=== PATIENT | female | born 1960 ===

== ENCOUNTER 2020-10-29 15:24 | Emergency (ER) | payer BC, SELFPAY ==
--- NOTE | ~2020-10-29 | XR_ITS ---
EXAMINATION: WRIST, BILATERAL CLINICAL INFORMATION: Fall, EtOH. COMPARISON: None TECHNIQUE: 3 views of the bilateral wrists FINDINGS: Left wrist: No fracture or dislocation. Alignment is normal. Soft tissues unremarkable. Right wrist: There is a small well corticated ossific density projecting over the ulnar styloid carpal alignment is normal. Soft tissues unremarkable. XR/XR hand wrist RT IMPRESSION: Small well-corticated ossific density projecting over the right styloid may be chronic however an avulsion fracture is not excluded. Correlate with physical exam
--- NOTE | ~2020-10-29 | CT_ITS ---
EXAMINATION: CT HEAD WITHOUT CONTRAST CT CERVICAL SPINE WITHOUT CONTRAST CLINICAL INFORMATION: Status post fall. EtOH. COMPARISON: None TECHNIQUE: Multidetector volumetric CT imaging of the head and cervical spine are acquired without intravenous contrast administration. Postprocessing is performed at a dedicated workstation. Multiplanar reformatted images are submitted. This CT scan was performed using dose optimization techniques as appropriate to a performed exam including the following: *Automated exposure control. *Adjustment of mA and/or kV according to patient size (this includes techniques or standardized protocols for targeted exams were dose is matched to indication/reason for exam; i.e. extremities or head). *Use of iterative reconstruction technique. DLP: 991 mGy-cm FINDINGS: CT HEAD: The ventricles and cortical sulci are age-appropriate. There is mild bifrontal volume loss. Vfyd-ji-ressz matter differentiation is well preserved. There is no evidence of abnormal parenchymal attenuation. There is no evidence of acute intracranial hemorrhage, midline shift or mass effect. No evidence of acute territorial infarction. No abnormal extra-axial fluid collection is noted. Scattered calcific atherosclerosis of the internal carotid arteries. Mild mucosal thickening in the bilateral inferior maxillary sinuses, left greater than right. Remainder of the visualized paranasal sinuses are clear. Mastoid air cells, and middle ear cavities are well aerated. The osseous calvarium is intact. There is no evidence of significant calvarial soft tissue swelling or hematoma. CT CERVICAL SPINE: There is mild reversal of cervical lordosis. The vertebral body heights are maintained. Minimal anterior subluxation of C2 over C3 is likely positional. The posterior elements are intact and in normal alignment. Atlantoaxial and atlanto-occipital alignments are maintained. Degenerative changes are noted at the atlantoaxial articulation. There is hvhelwdf-mg-nwnuqi narrowing of the C4-C5, C5-C6 and C6-C7 disc spaces with endplate sclerosis and erosive changes at C5-C6. Small marginal endplate osteophytes are noted at C4, C5 and C6. Small anterior endplate osteophyte is noted at the superior margin of C7. Micqdwbr-ya-pyzrcy bilateral neural foraminal stenosis is noted at C4-C5 and C5-C6 levels. No evidence of tight central canal stenosis. No evidence of prevertebral soft tissue swelling. The airway is patent. No focal thyroid nodule. The visualized lung apices are unremarkable except for minimal biapical pleural thickening/scarring. CT/CT head/brain wo con IMPRESSION: HEAD: No acute intracranial abnormality. CERVICAL SPINE: 1. No evidence of acute fracture or traumatic subluxation in the cervical spine. 2. Cervical spondylosis most significant from C4 to C6.
--- NOTE | ~2020-10-29 | XR_ITS ---
EXAMINATION: WRIST, BILATERAL CLINICAL INFORMATION: Fall, EtOH. COMPARISON: None TECHNIQUE: 3 views of the bilateral wrists FINDINGS: Left wrist: No fracture or dislocation. Alignment is normal. Soft tissues unremarkable. Right wrist: There is a small well corticated ossific density projecting over the ulnar styloid carpal alignment is normal. Soft tissues unremarkable. XR/XR hand wrist LT IMPRESSION: Small well-corticated ossific density projecting over the right styloid may be chronic however an avulsion fracture is not excluded. Correlate with physical exam
--- NOTE | ~2020-10-29 | CT_ITS ---
EXAMINATION: CT HEAD WITHOUT CONTRAST CT CERVICAL SPINE WITHOUT CONTRAST CLINICAL INFORMATION: Status post fall. EtOH. COMPARISON: None TECHNIQUE: Multidetector volumetric CT imaging of the head and cervical spine are acquired without intravenous contrast administration. Postprocessing is performed at a dedicated workstation. Multiplanar reformatted images are submitted. This CT scan was performed using dose optimization techniques as appropriate to a performed exam including the following: *Automated exposure control. *Adjustment of mA and/or kV according to patient size (this includes techniques or standardized protocols for targeted exams were dose is matched to indication/reason for exam; i.e. extremities or head). *Use of iterative reconstruction technique. DLP: 991 mGy-cm FINDINGS: CT HEAD: The ventricles and cortical sulci are age-appropriate. There is mild bifrontal volume loss. Numw-vz-mvebj matter differentiation is well preserved. There is no evidence of abnormal parenchymal attenuation. There is no evidence of acute intracranial hemorrhage, midline shift or mass effect. No evidence of acute territorial infarction. No abnormal extra-axial fluid collection is noted. Scattered calcific atherosclerosis of the internal carotid arteries. Mild mucosal thickening in the bilateral inferior maxillary sinuses, left greater than right. Remainder of the visualized paranasal sinuses are clear. Mastoid air cells, and middle ear cavities are well aerated. The osseous calvarium is intact. There is no evidence of significant calvarial soft tissue swelling or hematoma. CT CERVICAL SPINE: There is mild reversal of cervical lordosis. The vertebral body heights are maintained. Minimal anterior subluxation of C2 over C3 is likely positional. The posterior elements are intact and in normal alignment. Atlantoaxial and atlanto-occipital alignments are maintained. Degenerative changes are noted at the atlantoaxial articulation. There is cfjhdyzg-tn-fqfmeq narrowing of the C4-C5, C5-C6 and C6-C7 disc spaces with endplate sclerosis and erosive changes at C5-C6. Small marginal endplate osteophytes are noted at C4, C5 and C6. Small anterior endplate osteophyte is noted at the superior margin of C7. Fuwwmjxu-yd-vkjmvk bilateral neural foraminal stenosis is noted at C4-C5 and C5-C6 levels. No evidence of tight central canal stenosis. No evidence of prevertebral soft tissue swelling. The airway is patent. No focal thyroid nodule. The visualized lung apices are unremarkable except for minimal biapical pleural thickening/scarring. CT/CT cervical spine wo con IMPRESSION: HEAD: No acute intracranial abnormality. CERVICAL SPINE: 1. No evidence of acute fracture or traumatic subluxation in the cervical spine. 2. Cervical spondylosis most significant from C4 to C6.
[2020-10-29 16:06] VITALS: BP 118/82; BP 127/86; PULSE 111; PULSE 115; RESP 18; TEMP 37.1; O2SAT 95; BMI 23.5
--- NOTE | 2020-10-29 16:16 | PC.NURSE ---
Pt observer at bedside
[2020-10-29 17:40] LABS: COVID-19 Test Negative (Negative)
[2020-10-29] MEDS: 0.9 % Sodium Chloride 1,000 ML 999 ML IVCONT (18:00)
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
[2020-10-29] MEDS: Diphth,Pertus(ACell),Tet Adult 0.5 ML SYRINGE IM (18:15)
[2020-10-29 18:16] LABS: MANUAL DIFF FLAG NO
[2020-10-29 18:17] LABS: Basophils Absolute Auto 0.1 X10*3/uL (0.0-0.2); Basophils Percent Auto 1.2 % (0-2); Eosinophils Absolute Auto 0.3 X10*3/uL (0.0-0.4); Eosinophils Percent Auto 5.5 % (0-4); Hematocrit 42.2 % (37-47); Hemoglobin 14.1 g/dl (12.0-16.0); Imm Gran Abs Auto 0.02 X10*3/uL (0.00-0.03); Imm Gran Pct Auto 0.3 % (0.0-0.4); Lymphocytes Absolute Auto 2.4 X10*3/uL (1.2-4.9); Lymphocytes Percent Auto 40.5 % (20-40); Mean Corpuscular HGB Conc 33.4 g/dl (31.0-35.0); Mean Corpuscular Volume 95.9 fL (80-98); Mean Platelet Volume 9.2 fL (9.4-12.3); Monocytes Absolute Auto 0.3 X10*3/uL (0.1-1.2); Monocytes Percent Auto 5.4 % (2-11); Neutrophils Absolute Auto 2.8 X10*3/uL (2.0-8.3); Neutrophils Percent Auto 47.1 % (45-73); Platelet Count 307 X10*3/uL (160-400); Red Cell Distribution Width 12.7 % (11.0-16.0)
[2020-10-29 18:23] LABS: Prothrombin Time 11.5 SEC (10.8-13.0)
[2020-10-29 18:26] LABS: Partial Thromboplastin Time 32.1 SEC (24.1-38.0)
[2020-10-29] MEDS: Lidocaine HCl 1 % MPF 5 ML VIAL SUBCUT (18:37)
--- NOTE | 2020-10-29 18:37 | PC.NURSE ---
Blood obtained, urine collected. PA at bedside now for suturing of lac to chin. PT is cooperative with care but has outbursts of agitation at times. Pt is redirectable most times.
[2020-10-29 18:43] LABS: Ethanol 325 mg/dL
[2020-10-29 18:44] LABS: Glucose Urine UA NEG (NEG); Leukocyte Esterase Urine 2+ (NEG); Nitrite Urine NEG (NEG); Specific Gravity - Urine <= 1.005 (1.005-1.025); UACC Culture Trigger YES; Urine Blood TRACE (NEG); Urine Ketones NEG (NEG); Urine Protein NEG (NEG-TRACE)
[2020-10-29 18:45] LABS: Anion Gap 16 (12-20); Blood Urea Nitrogen 8 mg/dL (9-16); Calcium 8.5 mg/dL (8.4-10.2); Carbon Dioxide 19 mmol/L (22-29); Chloride 110 mmol/L (96-108); Creatinine Clr Calc Pharmacy 89.8; Estimated Glomerular Filt Rate > 60; Glucose Random 98 mg/dL (60-115); Potassium 4.5 mmol/L (3.3-5.1); Sodium 140 mmol/L (135-145)
[2020-10-29 18:46] LABS: Acetaminophen LAB < 1 mcg/mL (<30); Salicylate < 5.0 mg/dL (15-30)
[2020-10-29 18:46] LABS: Appearance Urine CLEAR; Color Urine YELLOW
[2020-10-29 18:48] LABS: Alanine Aminotransferase 46 U/L (0-31); Albumin Level 3.8 g/dL (3.5-5.0); Alkaline Phosphatase 108 U/L (39-117); Aspartate Amino Transferase 50 U/L (5-31); Bilirubin Direct < 0.2 mg/dL (0.0-0.5); Bilirubin Total 0.3 mg/dL (0.0-1.0); Lipase 28 U/L (8-78); Magnesium 2.3 mg/dL (1.6-2.6); Total Protein 6.8 g/dL (6.5-8.0)
[2020-10-29 18:55] LABS: Bacteria Urine TRACE /LPF; Mucus Urine TRACE /LPF; RBC Urine 0-2 /HPF (0); Squamous Epithelial Cell Urine 1+ /LPF
[2020-10-29 19:07] LABS: Amphetamine Screen Urine Not Detected (Not Detect); Barbiturates, Urine Not Detected (Not Detect); Benzodiazepines Screen Urine Not Detected (Not Detect); Cannabinoid Screen Urine Not Detected (Not Detect); Cocaine Screen Urine Not Detected (Not Detect); Opiate Screen Urine Not Detected (Not Detect); Phencyclidine Screen Urine Not Detected (Not Detect)
--- NOTE | 2020-10-29 20:03 | PC.NURSE ---
WRIST SUPPORTS BILATERALLY PER PROVIDERS ORDERS. SUMMARY FAXED TO [facility].
--- NOTE | 2020-10-29 20:24 | PC.NURSE ---
section 12 signed by provider. pt threatening to leave. pt moved to the pod without issue.
--- NOTE | 2020-10-29 21:48 | PC.NURSE ---
Patient is wandering, intermittently requesting discharge, patient made aware that she is being section, not happy with section, CT negative, N called and spoke with Carlyn, confirmed receipt of referral, will continue to monitor.
[2020-10-29] MEDS: LORazepam 1 MG TABLET 2 MG PO (22:01)
--- NOTE | 2020-10-29 22:20 | PC.NURSE ---
Patient appears restless, provider notified/ordered Ativan 2 mg/administered as ordered/pending effect, patient compliant with antibiotic Ceftin for UTI, will continue to monitor.
[2020-10-30 04:43] VITALS: BP 120/76; PULSE 76; RESP 18; TEMP 36.7; O2SAT 97
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
== END 2020-10-30 10:46 | disposition home or self-care (01) ==
PROVIDERS: Physician Assistant; Emergency Provider Internal Medicine
DX: F10.129 Alcohol abuse with intoxication, unspecified (principal); Y90.8 Blood alcohol level of 240 mg/100 ml or more; R45.851 Suicidal ideations; S01.81XA Laceration without foreign body of other part of head, initial encounter; N39.0 Urinary tract infection, site not specified; M25.531 Pain in right wrist; R93.7 Abnormal findings on diagnostic imaging of other parts of musculoskeletal system; M25.532 Pain in left wrist; W19.XXXA Unspecified fall, initial encounter; Y93.9 Activity, unspecified; Y92.830 Public park as the place of occurrence of the external cause; Y99.9 Unspecified external cause status; Z20.822 Contact with and (suspected) exposure to COVID-19
CPT/HCPCS: 12011; 29125; 36415; 70450; 72125; 73110; 73130; 80048; 80076; 80143; 80179; 80307; 81001; 81003; 82077; 83690; 83735; 85025; 85610; 85730; 87086; 87635; 90471; 90715; 96360; 99285

== ENCOUNTER 2020-11-09 08:02 | Emergency (ER) | payer BC, SELFPAY ==
[2020-11-09 08:19] VITALS: BP 121/88; PULSE 85; RESP 14; O2SAT 98; BMI 25.4
--- NOTE | 2020-11-09 08:26 | PC.NURSE ---
sutures noted to under pt's chin, pt is here for suture removal. sutures placed 11 days ago.
--- NOTE | 2020-11-09 08:31 | ED.RECABL ---
HPI - Recheck/Abnormal Lab/Rx General Chief Complaint: Wound/Laceration Stated Complaint: suture removal Time Seen by Provider: 11/09/20 08:15 Source: patient Mode of arrival: ambulatory Limitations: no limitations History of Present Illness complaint: suture/staple removal Initial visit (ago): day(s) ( Ten days ago) Initial visit for: laceration Returns today for: staple/stitch removal Symptoms since prior visit: no new symptoms and improved Context: planned re-check Associated symptoms: none Related Data Previous Rx's Medication Instructions Recorded nitrofurantoin monohyd/m-cryst 100 mg PO Q12H 7 Days #14 cap 10/30/20 [Macrobid] Allergies Allergy/AdvReac Type Severity Reaction Status Date / Time No Known Allergies Allergy Unverified 10/29/20 17:10 Review of Systems Review of Systems: Constitutional : No Fever, No Chills, Cardiovascular : No Chest Pain, No SOB Respiratory : No Dyspnea Gastrointestinal : No abdominal pain Musculoskeletal : No Joint Swelling Skin : positive skin laceration that is healing, No Foreign bodies, No rash, No surrounding erythema Neuro : No Weakness, No Numbness/tingling Psych : No SI/HI/thoughts of self injury Yes all other systems are reviewed and are negative [facility] Past Medical History Attestation statement: The following information was validated with the patient. Medical History No known health problems Social History Social History Patient Tobacco Use Status: Never used Tobacco Use of substances other than those prescribed or required for medical reasons: No Advance Directives: Yes Advance Directives Information Provided: No Advance Directives on File: No Physical Exam Vital Signs: Vital Signs: Last Vital Signs Pulse 85 11/09/20 08:19 Resp 14 11/09/20 08:19 BP 121/88 11/09/20 08:19 Pulse Ox 98 11/09/20 08:19 Body Mass Index 25.4 vital signs have been reviewed as normal and appeared to be correct. Blood pressure normal. Heart rate normal. Respiration rate normal. Temperature normal. Oxygen saturation normal. Appearance: Alert. Oriented X3. No acute distress. Head: Normal external exam. Normocephalic. Atraumatic. Eyes: PERRLA. EOMI. Conjunctiva and sclera normal. Eyelids normal. ENT: Pharynx normal. Uvula midline. Moist mucous membranes. Neck: Normal inspection. Neck supple. FROM. No adenopathy. No meningeal signs. CVS: Normal heart rate and rhythm. Respiratory: No respiratory distress. Painless inspiration. Back: Full range of motion noted. No rashes/lesion/induration/fluctuance or signs of infection noted. Skin: pt c well healing wound to chin c [address] no surrounding erythema /streaking /fluctuance or signs of infection. The rest of the Skin warm and dry. Normal skin color. Normal skin turgor. No rashes/lesions/lacerations noted. Extremities: Extremities exhibit normal range of motion. Extremities nontender. Neuro: Oriented X 3. No motor deficit. No sensory deficit. Reflexes normal. Normal steady gait. No focal neuro deficits noted. Course Course Course Narrative: patient now status post suture removal. Patient tolerated procedure well. 5 sutures were removed. Patient instructed to return if any new or worsening symptoms to follow up with primary care provider. Patient understands agrees with this plan. MDM - Recheck/Abnormal Lab/Rx Medical Records Attestation: I reviewed the patient's medical records. Discharge Plan Discharge Clinical Impression: Visit for suture removal Patient Disposition: Home, Self-Care Instructions: Stitches Removal (ED) Prescriptions: No Action nitrofurantoin monohyd/m-cryst [Macrobid] 100 mg capsule 100 mg PO Q12H 7 Days Qty: 14 RF: 0 Referrals: Physician,None [Primary Care Provider] - 2 days (your pcp) Print Language: Colombian
== END 2020-11-09 08:37 | disposition home or self-care (01) ==
PROVIDERS: Emergency Provider Emergency Medicine
DX: S01.81XD Laceration without foreign body of other part of head, subsequent encounter (principal); X58.XXXD Exposure to other specified factors, subsequent encounter
CPT/HCPCS: 99283

== ENCOUNTER 2023-04-24 08:26 | Outpatient (AMB) | payer MEDICAID, SELFPAY ==
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
[2023-04-24 09:28] VITALS: BP 140/70; PULSE 97; TEMP 36.1; O2SAT 97; BMI 24.3
== END 2023-04-24 10:16 | disposition home or self-care (01) ==
PROVIDERS: Visit Provider Physician Assistant
DX: L98.9 Disorder of the skin and subcutaneous tissue, unspecified (principal)
CPT/HCPCS: 99213

== ENCOUNTER 2024-05-30 09:58 | Outpatient (AMB) | payer MEDICARE, MEDICAID, SELFPAY ==
--- OUTSIDE RECORDS SUMMARY | 2024-05-30 10:06 | XMS_ITS | Continuity of Care Document ---
Author Organization [facility] Address [address] [place] [phone] Phone Care Team Providers Care Preschool Paraprofessional Name Role Phone Unavailable Unavailable Unavailable Results Test Name Date and Time Measure Units Reference Range Abnormal Flag Status Comments Panel Description: PapIG, CtNg, rfxHPVall, Final Interpretation 2015 12:13:0 0 NIL Final NEGATIVE FOR INTRAEPITHELIAL LESION AND MALIGNANCY.Performe d by:Essence Villa (KULDEEP) Category: 2015 12:13:0 0 NIL Final Negative for Intraepithelial LesionPerformed by:Essence Villa (KULDEEP) Adequacy: 2015 12:13:0 0 ENDO Final Satisfactory f or evaluation. Endocervical and/or squamous metaplastic cells(endocervical component) are present.Performed by:Essence MCCOY) Clinician provided ICD10: 2015 12:13:0 0 Comment Final Z01.419Perform ed by:Essence MCCOY) Performed by: 2015 12:13:0 0 Comment Final Sharron Baker Vacuum Cleaner Operator (ASCP)Performed by:Essence Villa (KULDEEP) Note: 2015 12:13:0 0 Comment Final The Pap smear is a screening test designed to aid in the detection ofpremalignant and malignant conditions of the uterine cervix. It is not adiagnostic procedure and should not be used as the sole means of detectingcervical cancer. Both false-positive and false-negative reports do occur. Performed by:Essence Villa (KULDEEP) Test Methodology: 2015 12:13:0 0 Comment Final This liquid ba sed ThinPrep(R) pap test was screened with theuse of an image guided system.Performed by:Essence Villa (KULDEEP) [id number] 2015 12:13:0 0 Comment Final The HPV DNA re flex criteria were not met with this specimen resulttherefore, no HPV testing was performed. Performed by:Essence Villa (KULDEEP) Chlamydia, Nuc. Acid Amp 2015 13:16:0 0 Negative Negative Final Performed by:Essence MCCOY) Gonococcus, Nuc. 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 findings 2015 No Information Family History Family Member Type Diagnosis Age At Onset No Information Payers Payer name Insurance type Covered republican ID [facility] ti(s) [employer] [id number] Social History Type Description Quantity Date Captured Comments Alcohol Use Details 3 drinks weekly Caffeine Use Details Tobacco Use Status No Information Smoking Status Never smoker Non-Smoking Tobacco Use Details : No Details Available : No Details Available Sex Female Vital Signs Date / Time: Height Weight BMI Pulse Rate Blood Pressure Temperature Respiratory Rate Body Surface Area Head Circumference Head Circ. Percentile Wt./Param. Percentile BMI percentile Pulse Ox Inhaled Ox 10:56 AM 66.00 in 69.853 kg (154.00 lbs) 24.8 6 kg/m eter (2) 142/64 mm[Hg] Chief Complaint And Reason For Visit From encounter dated '12/05/2015 10:40'. Annual Exam (chief complaint). Description: : 2. Parity: Term: 2. Livin. The patient states she uses menopausal for control. Her menses is absent. Negative for dysmenorrhea. Negative for: breast discharge, breast lump(s) and breast pain. Positive for: breast self exam.Postmenopausal. Negative for Hormone replacement therapy. Menopausal symptoms negative for: vaginal dryness. Menopausal symptoms positive for: hot flashes, insomnia and night sweats. The patient does not use tobacco. She does drink alcohol. Additional information: Pt's daughter is in graduate school for [employer], lives with pt. Pt's son is playing pro [employer] in [place].Pt left her several years ago, moved to [place]. Moved back recently. 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 Pt is trying to date but is having trouble. Pt is menopausal, c/o night sweats and hot flashes. Pt educated about HRT, Effexor: r/b/a.Pt is sexually active, requests STI testing. History Of Present Illness Encounter Date Complaint History Of Prese nt Illness Annual Exam : 2. Josefa ty: Term: 2. Livin. The patient states she uses menopausal for control. Her menses is absent. Negative for dysmenorrhea. Negative for: breast discharge, breast lump(s) and breast pain. Positive for: breast self exam.Postmenopausal. Negative for Hormone replacement therapy. Menopausal symptoms negative for: vaginal dryness. Menopausal symptoms positive for: hot flashes, insomnia and night sweats. The patient does not use tobacco. She does drink alcohol. Additional information: Pt's daughter is in graduate school for [employer], lives with pt. Pt's son is playing [employer] in [place].Pt left her several years ago, moved to [place]. Moved back recently. Works for a [employer], very stressfull job. Pt is trying to date but is having trouble. Pt is menopausal, c/o night sweats and hot flashes. Pt educated about HRT, Effexor: r/b/a.Pt is sexually active, requests STI testing. 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 D isc different things to try- gave samples. Rx also for low dose Vivelle 0.025. Disc using prometrium q 3m if estrogen taken regularly. Disc breast CA risks.
--- OUTSIDE RECORDS SUMMARY | 2024-05-30 10:06 | XMS_ITS | Clinical Summary ---
Author Organization Unknown Care Team Providers [facility] Agent Name Role Phone CATHY MORGAN, RITA Unavailable Unavailable TIM JAFFE, MARIE [place] Unav[employer]moe brown Payers Payer Name Policy Type Policy Number Effective Date Expira tion Date [employer] MEDICARE ADVANTAGE FFS [id number] MEDICAID [facility] [id number] MEDICARE - NGS MA/IL - PD [id number] Problems Condition Name Condition Details Condition Category Status Onset Date Resolution Date Last Treatment Date Treating Clinician Comments ACUTE RESPIRATORY FAILURE WITH HYPOXIA Active 2023-05 00:00: 00 ALCOHOL USE, UNSPECIFIED WITH WITHDRAWAL DELIRIUM Active 2023-05 00:00: 00 HYPOTENSION, UNSPECIFIED Active 2023-05 00:00: 00 PAIN, UNSPECIFIED Active 2023-05 00:00: 00 UNSPECIFIED ASTHMA, UNCOMPLICATE D Active 2023-05 00:00: 00 RETENTION OF URINE, UNSPECIFIED Active 2023-05 00:00: 00 HYPOTHYROIDI SM, UNSPECIFIED Active 2023-05 00:00: 00 Allergies, Adverse Reactions, Alerts Allergy Name Allergy Type Status Severity Reaction(s) Onset Date Inactive Date Treating Clinician Comments SULFA MEDS Propensity to adverse reactions Active 2024-05 19:49:4 9 PCNS Propensity to adverse reactions Active 2024-05 19:50:1 2 Medications Ordered Medication Name Filled Medication Name Start Date Stop Date Current Medication? Ordering Clinician Indication Dosage Frequency Signature (SIG) Comments Components furosemide 20 mg tablet 2023-05 00:00: 00 Yes [id number] 40 mg DAILY 40 mg DAILY (route: oral) Med Classific ation: Cardiovas cular Therapy Agents spironolact one 50 mg tablet 2023-05 00:00: 00 Yes [id number] 100 mg DAILY 100 mg DAILY (route: oral) Med Classific ation: Cardiovas cular Therapy Agents midodrine 2.5 mg tablet 2023-05 00:00: 00 Yes [id number] Per instruc tions DIRECTED Per instructio ns DIRECTED (route: oral) Med Classific ation: Cardiovas cular Therapy Agents levothyroxi ne 25 mcg tablet 05-26 00:00: 00 Yes [id number] 1 tablet DAILY 1 tablet DAILY (route: oral) Med Classific ation: Endocrine Vital Signs Vital Name Observation Time Observation Value Commen ts Temperature 2024-05-26 12:54:00.000 98.3 [degF] BMI (%) 2024-05-27 18:29:41.000 22 kg/m2 Height 2024-05-27 18:29:32.000 66 [in_us] Pulse 2024-05-26 12:54:00.000 83 /min Respirations 2024-05-26 12:54:00.000 18 /min Weight (lbs) 2024-05-27 18:29:41.000 137 [lb_av] Systolic Blood Pressure 2024-05-26 12:54:00.000 72 mm[ Hg] Diastolic Blood Pressure 2024-05-26 12:54:00.000 50 mm [Hg] Plan of Treatment Planned Activity Planned Date Details Comments Future Scheduled Test SKILLED NU RSE TO EVALUATE PATIENT, IDENTIFY PRIMARY AND CO-MORBID CONDITIONS CODED PER CODING GUIDELINES, AND DEVELOP PATIENT SPECIFIC PLAN OF CARE THAT INCLUDES PATIENT GOAL FOR HOME HEALTH. [code = SKILLED NURSE TO EVALUATE PATIENT, IDENTIFY PRIMARY AND CO-MORBID CONDITIONS CODED PER CODING GUIDELINES, AND DEVELOP PATIENT SPECIFIC PLAN OF CARE THAT INCLUDES PATIENT GOAL FOR HOME HEALTH.] Future Scheduled Test SKILLED NU RSE TO O/A OF PATIENTS MENTAL/BEHAVIORAL STATUS, ASSESS VITAL SIGNS WEEKLY ALLOW 2 PRNS FOR MEDICATION MANAGEMENT. [code = SKILLED NURSE TO O/A OF PATIENTS MENTAL/BEHAVIORAL STATUS, ASSESS VITAL SIGNS WEEKLY ALLOW 2 PRNS FOR MEDICATION MANAGEMENT.] Future Scheduled Test SKILLED NU RSE FOR O/A OF GENERAL HEALTH STATUS OF PAIN, CARDIAC, RESPIRATORY, GASTROINTESTINAL, GENITOURINARY, SKIN, NEUROLOGIC, ENDOCRINE SYSTEMS TO IDENTIFY CHANGES ASSOCIATED WITH EXACERBATION FOR EARLY INTERVENTION OF COMPLICATIONS WEEKLY [code = SKILLED NURSE FOR O/A OF GENERAL HEALTH STATUS OF PAIN, CARDIAC, RESPIRATORY, GASTROINTESTINAL, GENITOURINARY, SKIN, NEUROLOGIC, ENDOCRINE SYSTEMS TO IDENTIFY CHANGES ASSOCIATED WITH EXACERBATION FOR EARLY INTERVENTION OF COMPLICATIONS WEEKLY] Future Scheduled Test SKILLED NU RSE FOR O/A AND TEACHING ON SIGNS AND SYMPTOMS AND MANAGEMENT OF HYPOTENSION [code = SKILLED NURSE FOR O/A AND TEACHING ON SIGNS AND SYMPTOMS AND MANAGEMENT OF HYPOTENSION ] Future Scheduled Test PHYSICAL T HERAPIST TO EVALUATE PATIENT FOR GAIT STABILITY AND HOME SAFETY EVALUATION. [code = PHYSICAL THERAPIST TO EVALUATE PATIENT FOR GAIT STABILITY AND HOME SAFETY EVALUATION.] Future Scheduled Test MEDICAL SO CIAL WORKER TO EVALUATE PATIENT FOR NEED OF FURTHER FINISHER COLD ROLLING SERVICES [code = POTATO INSPECTOR TO EVALUATE PATIENT FOR NEED OF FURTHER FINISHER COLD ROLLING SERVICES] Future Scheduled Test SKILLED NU RSE FOR O/A, TEACHING RELATED TO HEPATIC HYDROTHORAX FOR EARLY IDENTIFICATION OF EXACERBATION OF DISEASE PROCESS. [code = SKILLED NURSE FOR O/A, TEACHING RELATED TO HEPATIC HYDROTHORAX FOR EARLY IDENTIFICATION OF EXACERBATION OF DISEASE PROCESS.] Future Scheduled Test PATIENT PEREZ S A RISK OF HOSPITALIZATION AND ED USE. SKILLED NURSE TO ESTABLISH SUPPORT MEASURES TO MINIMIZE RISK OF HOSPITALIZATION AND ED USE, AND INSTRUCT PATIENT/CAREGIVER ON METHODS TO REDUCE AVOIDABLE HOSPITALIZATION AND ED USE. [code = PATIENT HAS A RISK OF HOSPITALIZATION AND ED USE. SKILLED NURSE TO ESTABLISH SUPPORT MEASURES TO MINIMIZE RISK OF HOSPITALIZATION AND ED USE, AND INSTRUCT PATIENT/CAREGIVER ON METHODS TO REDUCE AVOIDABLE HOSPITALIZATION AND ED USE.] Future Scheduled Test SKILLED NU RSE TO REVIEW PATIENT MEDICATIONS. INSTRUCT PATIENT/CAREGIVER ON MONITORING OF EFFECTIVENESS, ADVERSE DRUG REACTIONS, SIDE EFFECTS OF ALL MEDICATIONS (PRESCRIPTION/-OTC), AND HOW AND WHEN TO REPORT PROBLEMS. [code = SKILLED NURSE TO REVIEW PATIENT MEDICATIONS. INSTRUCT PATIENT/CAREGIVER ON MONITORING OF EFFECTIVENESS, ADVERSE DRUG REACTIONS, SIDE EFFECTS OF ALL MEDICATIONS (PRESCRIPTION/-OTC), AND HOW AND WHEN TO REPORT PROBLEMS.] Future Scheduled Test SKILLED NU RSE TO ASSESS PATIENTS PSYCHOSOCIAL STATUS TO IDENTIFY POTENTIAL ISSUES THAT MAY COMPLICATE THE PROVISION OF THE PLAN OF CARE INCLUDING THE PATIENTS ABILITY TO ACCESS COMMUNITY RESOURCES AND PSYCHOSOCIAL SUPPORT SERVICES. [code = SKILLED NURSE TO ASSESS PATIENTS PSYCHOSOCIAL STATUS TO IDENTIFY POTENTIAL ISSUES THAT MAY COMPLICATE THE PROVISION OF THE PLAN OF CARE INCLUDING THE PATIENTS ABILITY TO ACCESS COMMUNITY RESOURCES AND PSYCHOSOCIAL SUPPORT SERVICES.] Future Scheduled Test SKILLED NU RSE WILL MAINTAIN SITUATIONAL AWARENESS FOR SAFETY AND WILL NOTIFY CLINICAL DAIRY NUTRITION CONSULTANT AND PHYSICIAN/PROVIDER WITH ANY CHANGE IN CONDITION. [code = SKILLED NURSE WILL MAINTAIN SITUATIONAL AWARENESS FOR SAFETY AND WILL NOTIFY CLINICAL DAIRY NUTRITION CONSULTANT AND PHYSICIAN/PROVIDER WITH ANY CHANGE IN CONDITION.] Future Scheduled Test SKILLED NU RSE TO PROVIDE INSTRUCTION TO PATIENT/CAREGIVER RELATED TO DISCHARGE PLANNING. [code = SKILLED NURSE TO PROVIDE INSTRUCTION TO PATIENT/CAREGIVER RELATED TO DISCHARGE PLANNING. ] Goal Patient Goal - T O STAY WELL AND OUT OF HOSPITAL Goal Provider Goal - A PLAN OF CARE WILL BE ESTABLISHED THAT MEETS PATIENT'S SENIOR LIVING NEEDS AND INCLUDES PATIENT GOAL FOR HOME HEALTH. Goal Provider Goal - ALTERED MENTAL/BEHAVIORAL STATUS WILL BE IDENTIFIED PROMPTLY AND INTERVENTION INITIATED QUICKLY TO MINIMIZE ASSOCIATED RISKS THROUGHOUT CERTIFICATION PERIOD. Goal Provider Goal - CHANGE IN GENERAL HEALTH STATUS WILL BE IDENTIFIED AND REPORTED TO PHYSICIAN FOR PROMPT INTERVENTION TO MINIMIZE ASSOCIATED RISKS THROUGHOUT CERTIFICATION PERIOD. Goal Provider Goal - PATIENT/CAREGIVER WILL VERBALIZE SIGNS AND SYMPTOMS OF HYPOTENSION AND WILL BE ABLE TO DEMONSTRATE ABILITY TO MANAGE EXACERBATION BY END OF THE EPISODE. Goal Provider Goal - A PHYSICAL THERAPY EVALUATION TO BE COMPLETED WITH RECOMMENDATIONS AND/OR WRITTEN PLAN OF TREATMENT ESTABLISHED FOR PHYSICIANS SIGNATURE. Goal Provider Goal - POTATO INSPECTOR TO COMPLETE EVALUATION TO ADDRESS THE PATIENTS SOCIAL AND EMOTIONAL FACTORS AND/OR WRITTEN PLAN OF TREATMENT ESTABLISHED FOR THE PHYSICIAN'S SIGNATURE. Goal Provider Goal - EXACERBATIONS OF HEPATIC HYDROTHORAX LIVER DISEASE WILL BE PROMPTLY IDENTIFIED AND INTERVENTIONS IMPLEMENTED TO MINIZMIZE RISKS TO PATIENT BY END OF THE EPISODE. Goal Provider Goal - PATIENT WILL HAVE SUPPORT MEASURES ESTABLISHED TO PREVENT HOSPITALIZATION AND ED USE AND PATIENT/CAREGIVER WILL VERBALIZE/DEMONSTRATE METHODS TO REDUCE AVOIDABLE HOSPITALIZATION AND ED USE BY END OF EPISODE. Goal Provider Goal - PATIENT/CAREGIVER WILL VERBALIZE UNDERSTANDING OF EDUCATION PROVIDED ON MEDICATIONS BY THE END OF THE CERTIFICATION PERIOD. Goal Provider Goal - PSYCHOSOCIAL NEEDS WILL BE IDENTIFIED AND PLAN IMPLEMENTED TO MINIMIZE RISK THROUGHOUT CERTIFICATION PERIOD. Goal Provider Goal - PATIENT WILL REMAIN SAFE IN THE COMMUNITY AND WILL BE FREE OF DANGER TO SELF AND OTHERS THROUGHOUT THE CERTIFICATION PERIOD. Goal Provider Goal - PATIENT/CAREGIVER WILL VERBALIZE UNDERSTANDING OF DISCHARGE PLANNING INSTRUCTIONS BY DATE OF DISCHARGE. Progress Notes Progress Notes <paragraph>[Visit Date: 2024 by MARIE DUMONT RN]:</paragraph><paragraph>SN SOC NOTE 1 : PATIENT ADMITTED TO [facility] AFTER HAVING HOSPITALIZATION DUE TO ACUTE HYPOXIC RESPIRATORY FAILURE RESULTING IN INTUBATION X2 PATIENT HAS LONG HISTORY OF ALCOHOL ABUSE CIRRHOSIS AND HEPATIC HYDROTHORAX AND WAS GETTING WEEKLY THORACENTESIS AND HAD MISSED HER VISIT FOR. A WELLNESS CHECK WAS DONE AND SHE WAS FOUND TO BE IN DISTRESS, PATIENT WAS SENT TO HOSPITAL ENDED UP BEING INTUBATED IN INTENSIVE CARE AND HAD SEVERAL LITERS OF FLUID TAKEN OUT OF THORACIC CAVITY AND LATER WHEN STABILIZED WAS SENT TO [facility]. 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 PATIENT WAS BEING FOLLOWED BY [facility] IN [place] AND WAS ON WAITING LIST FOR LIVER TRANSPLANT HAD ISSUES WITH REENGAGING IN DRINKING A FEW MONTHS PRIOR AND ENDED UP WITH THIS HOSPITALIZATION THEREFORE AFTERWARDS BEING TAKEN OFF THE TRANSPLANT LIST. PATIENT AT THIS TIME DOES HAVE FOLLOW UP APPOINTMENT TO REINSTATE HER SERVICES THROUGH [facility], HAS APPOINTMENT IN SEPTEMBER. PATIENT REPORTS TO NURSE THAT SHE HAS NOT BEEN DRINKING SINCE HOME. PATIENT ALSO HAS A PAST MEDICAL HISTORY OF HYPERTENSION ASTHMA HYPOTHYROIDISM AND LUMBAR PAIN. PATIENT LIVES ALONE IN A [address] HOME DOES HAVE FAMILY BUT THEY LIVE OUT OF THE AREA IN [facility]. PATIENT DOES HAVE SISTERS NEARBY WHO DO ASSIST HER INTERMITTENTLY. AT TIME OF START OF CARE PATIENT APPEARS ALERT AND ORIENTED X3. BLOOD PRESSURE VERY LOW 76/40 PATIENT DID REFUSE EMS SERVICES PCP WAS NOTIFIED AND MESSAGE LEFT. PATIENT DID COMPLAIN OF DIZZINESS ONLY UPON STANDING OTHERWISE OTHER VITAL SIGNS STABLE. LUNG SOUNDS CLEAR THROUGHOUT. PATIENT WITH MILD PITTING EDEMA 1+ IN BILATERAL LOWER EXTREMITIES. PATIENT COHERENT ANSWERS APPROPRIATELY DENIES DEPRESSION OR ANXIETY IS VERY HYPERVERBAL AND APPEARS TENSE AND VERY IRRITABLE DURING VISIT TALKING ABOUT HER MOST RECENT HOSPITALIZATION THAT SHE WENT THROUGH. PATIENT DOES HAVE FOLLOW UP WITH PCP TOMORROW WILL REVIEW MEDS .AT THIS TIME PATIENT FOUND TO BE NONCOMPLIANT WITH FUROSEMIDE AND SPIRONOLACTONE WAS TAKING DOUBLE THE DOSE THAT WAS ACTUALLY ORDERED MOST LIKELY RESULTING IN HER HYPOTENSIVE STATE. PATIENT DOES REQUIRE FLUID RESTRICTIONS DUE TO HER HISTORY OF FLUID RETENTION IN THE THORACIC CAVITY BUT DUE TO HAVING LOW BLOOD PRESSURE THIS NURSE ADVISED HER TO REHYDRATE HERSELF WITH WATER AND EAT SOMETHING SALTY TO HELP INCREASE HER BLOOD PRESSURE BEING THAT SHE REFUSES EMS SERVICES. AT THIS TIME MEDICATIONS PRESENT IN HOME INCLUDE FUROSEMIDE 20 MG AND 40 MG TABLETS SPIRONOLACTONE 40 MG TABLETS LEVOTHYROXINE 25 MCG TABLETS, MIDODRINE 2.5 TABLETS. PATIENT STATES SHE NORMALLY MANAGES MEDICATIONS ON HER OWN REFUSES PILLBOX AT THIS TIME STATES WANTS TO VERIFY ALL MEDICATIONS WITH MD TOMORROW AT FOLLOW UP VISIT. PATIENT ADVISED NOT TO TAKE ANY DIURETIC MEDICATION UNTIL VISITS WITH MD TOMORROW MORNING. PATIENT AMBULATES WITHIN HOME WITH SLOW SLIGHTLY UNSTEADY GAIT DOES HAVE WALKER FOR ASSISTANCE DENIES ANY FALLS OR INJURIES. PATIENT DOES COMPLAIN OF SOME MODERATE LUMBAR PAIN WHICH IS CHRONIC FOR HER DOES HAVE HISTORY OF DEGENERATIVE DISC DISEASE AND HAS BEEN USING IBUPROFEN 800 MG FROM PREVIOUS PRESCRIPTION USUALLY 1 TAB DAILY WITH MILD RELIEF. PATIENT WILL VERIFY MEDICATION FOR PAIN AT VISIT TOMORROW WITH PCP .DUE TO PATIENT WITH INCREASED WEAKNESS AND UNSTEADY GAIT PT REFERRAL WILL BE PUT IN FOR ASSESS AND EVALUATION .RAMP ATTENDANT EVAL WILL BE PUT IN TO ASSIST PATIENT WITH SERVICES THAT COULD ASSIST HER IN THE HOME SUCH FINISHER COLD ROLLING AND HOMEMAKER BEING THAT SHE LIVES ALONE AND HER CONDITION IS SOMEWHAT FRAIL AND SHE IS AGREEABLE TO THIS. PATIENT ALSO DOES STATES THAT SHE DRIVES BUT NURSE HAD SUGGESTED HAVING SUBSTITUTE TRANSPORTATION IN PLACE TO GET TO AND FROM MEDICAL APPOINTMENTS ESPECIALLY [facility] TO [facility] AND DUE TO HER FRAIL CONDITION .SHE CAN DISCUSS WITH RAMP ATTENDANT. PATIENT AT THIS TIME WILL BE SEEN WEEKLY FOR SENIOR LIVING VISIT FOR MEDICATION AND DISEASE MANAGEMENT AND EDUCATION REGARDING .UPDATE GIVEN TO ROXANA JOSEPH RN DIRECTOR AT [facility].</paragraph> Encounters Start Date/Time End Date/Time Encounter Type Admission Type [facility] Care Facility Care Department Encounter ID Discharge Date Discharge Status Discharge Condition Discharge Reason Percent Goals Met 2024-05-26 00:00:00 2024-07-24 00:00:00 Outpatient NEW ADMISSION MARIE DUMONT [facility] [id number] 20.00
--- NOTE | 2024-05-30 10:26 | MHC.OFFWIV ---
Intake Vital Signs 05/30/24 10:36 Height 5 ft 6 in Weight 137 lb BMI 22.1 BP 122/72 Blood Pressure Location Lt brachial Position Sitting Pulse 72 Pulse Source Pulse Oximeter Temp 97.7 F Temp Source Oral Pulse Oximetry (%) 98 Intake Visit Reasons: EP ?sinus infection/sore throat Intake Note: pt is here for sinus infection, bloody noses, sinus drip causing throat to be sore. Patient Tobacco Use Status: Never used Tobacco Allergies No Known Allergies Allergy (Verified 05/30/24 10:35) Do you need a note to return to daycare/school/sports/work: No HPI EP ?sinus infection/sore throat HPI Details Sinus pain and pressure. Irritation in nasal passages. Right ear pain and pressure Mild sore throat which patient describes as secondary to postnasal drip Patient notes some blood clots in mucus when she blows her nose PFSH Medical History No known health problems Social History Patient Tobacco Use Status: Never used Tobacco Review of Systems Const Details: Mild feverishness but no fevers Mild chills See HPI Physical Exam Vital Signs: Last Vital Signs Temp 97.7 F 05/30/24 10:36 Pulse 72 05/30/24 10:36 BP 122/72 05/30/24 10:36 Pulse Ox 98 05/30/24 10:36 BMI result Body Mass Index 22.1 Const Other: Patient appears mildly ill General: no acute distress and well developed Nutritional Appearance: well nourished Orientation/consciousness: patient oriented x3 HEENT Other: Nasal vaults with significant discharge, blood and some pus Severe mucous membrane irritation Tenderness at bilateral maxillary sinuses Erythema of posterior nasopharynx without patchy exudates. Some postnasal drip and cobblestoning Right TM with scant pus at inferior aspect of the membrane Head: Yes normocephalic and Yes atraumatic Eyes General: appearance normal, both eyes and all related structures Pupils: Equal, round and reactive pupils present EOM: EOMs intact bilaterally Resp Effort & Inspection: normal respiratory effort Auscultation: clear to auscultation bilaterally Cardio Rate: regular rate Rhythm: regular rhythm Heart sounds: S1 normal heart sound present, S2 normal heart sound present, no gallops, no murmurs and no rubs Neuro General: patient oriented x3 and gait normal Cranial nerves: Yes Equal, round and reactive pupils present Psych Affect: normal affect Assessment & Plan Assessment & Plan (1) Sinus infection: Code(s): J32.9 - Chronic sinusitis, unspecified Plan: Sinus infection with right otitis media. Start amoxicillin Warm compresses on maxillary sinuses Can use ibuprofen for pain Advised nasal saline throughout her day but not within 30 minutes of Flonase which her primary has given her Call or return to office if not improving (2) Right otitis media: Code(s): H66.91 - Otitis media, unspecified, right ear Plan: As above Medications: New amoxicillin 500 mg PO Q12H 10 days 20 tabs 0RF Coding Level of Care Code Est Pt Level 3 (70400) Diagnoses Sinus infection J32.9 Right otitis media H66.91
[2024-05-30 10:36] VITALS: BP 122/72; PULSE 72; TEMP 36.5; O2SAT 98; BMI 22.1
== END 2024-05-30 11:54 | disposition home or self-care (01) ==
LOC: HO.HMCWIC 09:58
PROVIDERS: PCP Internal Medicine; Visit Provider Family Medicine
DX: J32.9 Chronic sinusitis, unspecified (principal); H66.91 Otitis media, unspecified, right ear

== ENCOUNTER → 2024-05-30 09:58 | Outpatient (BNVA) | payer MEDICARE, MEDICAID, SELFPAY | PROVIDERS: PCP Internal Medicine; Visit Provider Family Medicine | DX: J32.9 Chronic sinusitis, unspecified (principal); H66.91 Otitis media, unspecified, right ear | CPT/HCPCS: 99212 ==